=== PATIENT | female | born 1995 | race Caucasian/White ===

== ENCOUNTER 2023-10-05 20:33 | Emergency (ER) | payer MEDICARE, OTHER ==
[~2023-10-05] VITALS: Ht 172.7 cm; Wt 63.5 kg
[2023-10-05] MEDS ORDERED: Buprenorphine HCL/Naloxone HCL 8MG-2MG Tab SL ONE (20:40)
[2023-10-05] MEDS ORDERED: BUPRENORPHIN-N1 EAC4 SL (20:59)
== END 2023-10-05 21:24 | disposition home or self-care (01) ==
LOC: ER 20:33
DX: S51.812A Laceration without foreign body of left forearm, initial encounter (principal); F11.23 Opioid dependence with withdrawal; F32.A Depression, unspecified; X78.8XXA Intentional self-harm by other sharp object, initial encounter
CPT/HCPCS: 99284; A9270

== ENCOUNTER 2023-10-10 17:50 | Emergency (ER) | payer MEDICARE, OTHER ==
[~2023-10-10] VITALS: Ht 172.7 cm; Wt 63.5 kg
[~2023-10-10 17:50] MED LIST: BUPRENORPHIN-N1 EAC4 SL
[2023-10-10] MEDS ORDERED: SUBLOCADE SC (19:06)
[2023-10-10] MEDS ORDERED: BUPR150ER PO (19:07)
[2023-10-10] MEDS ORDERED: NICO21TP TOP (19:07)
[2023-10-10] MEDS ORDERED: CATAPRES0.1 MG PO (19:08)
[2023-10-10] MEDS ORDERED: QUETIAPINE FUMA25 MG PO (19:09)
[2023-10-10] MEDS ORDERED: HyDROXyzine HCl 25 MG Tab PO ONE (19:35)
[2023-10-10] MEDS ORDERED: Hydroxyzine HCl50 MG PO (19:59)
[2023-10-11] MEDS ORDERED: DERMACINRX FOL1 EAC2 PO (15:47)
== END 2023-10-10 21:55 | disposition home or self-care (01) ==
LOC: ER 17:50
DX: F41.1 Generalized anxiety disorder (principal); F11.90 Opioid use, unspecified, uncomplicated; Z79.899 Other long term (current) drug therapy
CPT/HCPCS: 93005; 93010; 99283-25; A9270

== ENCOUNTER 2023-10-11 14:14 | Emergency (ER) | payer MEDICARE, OTHER ==
[~2023-10-11] VITALS: Ht 170.2 cm; Wt 72.6 kg
[~2023-10-11 14:14] MED LIST changes: +BUPR150ER PO; +CATAPRES0.1 MG PO; +Hydroxyzine HCl50 MG PO; +NICO21TP TOP; +QUETIAPINE FUMA25 MG PO; +SUBLOCADE SC
[2023-10-11 14:53] LABS: BASOPHILS ABSOLUTE AUTO 0.03 K/mm3 (0.00-0.23); BASOPHILS PERCENT AUTO 0 % (0-2); EOSINOPHILS ABSOLUTE AUTO 0.03 K/mm3 (0.00-0.68); EOSINOPHILS PERCENT AUTO 0 % (0-6); Hematocrit 40.3 % (33.0-51.0); Hemoglobin 13.3 g/dL (11.5-16.0); IMMATURE GRAN ABSOLUTE AUTO 0.02 K/mm3 (0.00-0.10); IMMATURE GRAN PERCENT AUTO 0 % (0-1); LYMPHOCYTES ABSOLUTE AUTO 2.13 K/mm3 (0.84-5.20); LYMPHOCYTES PERCENT AUTO 21 % (21-46); MONOCYTES ABSOLUTE AUTO 0.49 K/mm3 (0.16-1.47); MONOCYTES PERCENT AUTO 5 % (4-13); Mean Corpuscular Volume 88 fL (80-100); Mean Platelet Volume 10.2 fL (9.1-12.4); NEUTROPHILS ABSOLUTE AUTO 7.47 K/mm3 (1.96-9.15); NEUTROPHILS PERCENT AUTO 74 % (41-73); Platelet Count 252 K/mm3 (150-400); RDW Coefficient Variation 13.6 % (11.7-14.2); RDW Standard Deviation 43.7 fL (35.1-46.3); Red Blood Cell Count 4.59 M/mm3 (3.80-5.20); White Blood Cell Count 10.17 K/mm3 (4.00-11.30)
[2023-10-11 15:16] LABS: Magnesium, Blood 2.4 mg/dL (1.6-2.4)
[2023-10-11 15:20] LABS: Alanine Aminotransfer (ALT/SGP 42 U/L (12-78); Albumin, Blood 4.1 g/dL (3.4-5.0); Albumin/Globulin Ratio 1.2 (0.8-1.8); Alk Phos 54 U/L (50-136); Aspartate Aminotrans (AST/SGOT 29 U/L (12-37); Bilirubin, Total 0.5 mg/dL (0.1-1.0); Blood Urea Nitrogen 18 mg/dL (8-24); Bun/Creatinine Ratio 22.4 (12.0-20.0); CO2, Blood 32 mmol/L (21-32); Calcium, Blood 9.3 mg/dL (8.5-10.1); Chloride, Blood 108 mmol/L (98-108); Creatinine, Blood 0.81 mg/dL (0.40-1.00); Globulin, Blood 3.5 g/dL (2.2-4.0); Glomerular Filtration Rate 102 (60-); Glucose, Blood 88 mg/dL (70-99); Potassium, Blood 4.4 mmol/L (3.5-5.5); Sodium, Blood 138 mmol/L (136-145); Total Protein, Blood 7.6 g/dL (6.4-8.2)
[2023-10-11 15:21] LABS: Anion Gap Unable to Calculate mmol/L (6-16)
[2023-10-11] MEDS ORDERED: DERMACINRX FOL1 EAC2 PO (15:47)
[2023-10-11] MEDS ORDERED: LORazepam 1 MG Tab PO ONE (16:30)
== END 2023-10-11 16:53 | disposition home or self-care (01) ==
LOC: ER 14:14
PROVIDERS: Student in an Organized Health Care Education/Training Program
DX: F41.9 Anxiety disorder, unspecified (principal); Z79.899 Other long term (current) drug therapy
CPT/HCPCS: 80053; 83735; 84703; 85025; 93005; 93010; 99285-25; A9270

== ENCOUNTER 2023-10-17 20:04 | Emergency (ER) | payer MEDICARE, OTHER ==
[~2023-10-17] VITALS: Ht 167.6 cm; Wt 70.8 kg
[~2023-10-17 20:04] MED LIST changes: +DERMACINRX FOL1 EAC2 PO
[2023-10-17] MEDS ORDERED: levETIRAcetam 1,000 MG in NS 100 ML IV ONE (20:20)
[2023-10-17 20:32] LABS: BASOPHILS ABSOLUTE AUTO 0.04 K/mm3 (0.00-0.23); BASOPHILS PERCENT AUTO 0 % (0-2); EOSINOPHILS ABSOLUTE AUTO 0.17 K/mm3 (0.00-0.68); EOSINOPHILS PERCENT AUTO 2 % (0-6); Hematocrit 39.4 % (33.0-51.0); Hemoglobin 13.2 g/dL (11.5-16.0); IMMATURE GRAN ABSOLUTE AUTO 0.02 K/mm3 (0.00-0.10); IMMATURE GRAN PERCENT AUTO 0 % (0-1); LYMPHOCYTES ABSOLUTE AUTO 3.17 K/mm3 (0.84-5.20); LYMPHOCYTES PERCENT AUTO 33 % (21-46); MONOCYTES PERCENT AUTO 10 % (4-13); Mean Corpuscular HGB Conc 33.5 g/dL (31.5-36.5); Mean Corpuscular Volume 87 fL (80-100); Mean Platelet Volume 10.1 fL (9.1-12.4); NEUTROPHILS ABSOLUTE AUTO 5.22 K/mm3 (1.96-9.15); NEUTROPHILS PERCENT AUTO 55 % (41-73); Platelet Count 254 K/mm3 (150-400); RDW Coefficient Variation 13.4 % (11.7-14.2); RDW Standard Deviation 42.5 fL (35.1-46.3); Red Blood Cell Count 4.55 M/mm3 (3.80-5.20); White Blood Cell Count 9.52 K/mm3 (4.00-11.30)
[2023-10-17] MEDS ORDERED: LORazepam 2 MG/ML 1ML Injection ONE (20:34)
[2023-10-17 21:00] LABS: Ethanol (Alcohol), Blood, Med <3 mg/dL; Magnesium, Blood 2.5 mg/dL (1.6-2.4); Prolactin 45.1 ng/mL
[2023-10-17 21:01] LABS: Alanine Aminotransfer (ALT/SGP 27 U/L (12-78); Albumin/Globulin Ratio 1.1 (0.8-1.8); Alk Phos 63 U/L (50-136); Anion Gap 6 mmol/L (6-16); Aspartate Aminotrans (AST/SGOT 25 U/L (12-37); Bilirubin, Total 0.3 mg/dL (0.1-1.0); Blood Urea Nitrogen 14 mg/dL (8-24); CO2, Blood 29 mmol/L (21-32); Calcium, Blood 9.3 mg/dL (8.5-10.1); Chloride, Blood 107 mmol/L (98-108); Creatinine, Blood 0.78 mg/dL (0.40-1.00); Globulin, Blood 3.6 g/dL (2.2-4.0); Glomerular Filtration Rate 107 (60-); Glucose, Blood 87 mg/dL (70-99); Sodium, Blood 142 mmol/L (136-145); Total Protein, Blood 7.6 g/dL (6.4-8.2)
[2023-10-17] MEDS ORDERED: Acetaminophen 325 MG TABLET PO ONE (21:20)
[2023-10-17] MEDS ORDERED: NS 1,000 ML IV SCH (22:45)
[2023-10-18 01:49] LABS: U Amphetamine Screen Not Detected; U Barbituate Screen Not Detected; U Benzodiazapine Screen Not Detected; U Buprenorphine Screen DETECTED; U Cannabinoids Screen Not Detected; U Cocaine Screen Not Detected; U Methadone Screen Not Detected; U Methamphetamine Screen Not Detected; U Opiates Screen Not Detected; U Oxycodone Screen Not Detected; U Phencyclidine Screen Not Detected
[2023-10-18] MEDS ORDERED: HyDROXyzine HCl 25 MG Tab PO ONE (02:10)
[2023-10-18] MEDS ORDERED: Ketorolac Tromethamine 30mg Vial IV ONE (02:10)
[2023-10-18] MEDS ORDERED: LEVE500 PO (02:51)
[2023-10-18] MEDS ORDERED: Neurontin 100100 MG PO (18:18)
== END 2023-10-18 03:30 | disposition home or self-care (01) ==
LOC: ER 20:04
PROVIDERS: Student in an Organized Health Care Education/Training Program
DX: R56.9 Unspecified convulsions (principal); S00.83XA Contusion of other part of head, initial encounter; F41.9 Anxiety disorder, unspecified; F11.99 Opioid use, unspecified with unspecified opioid-induced disorder; Z79.899 Other long term (current) drug therapy; W18.39XA Other fall on same level, initial encounter
CPT/HCPCS: 70450; 72125; 80053; 83735; 84146; 84443; 84703; 85025; 93005; 93010; 96361; 96374; 96375; 99285-25; A9270; J1885; J1953; J2060; J7030